=== PATIENT | male | born 1995 | race African-American/Black ===

== ENCOUNTER 2021-10-14 10:39 | Emergency (ER) | payer MEDICAID, OTHER ==
[~2021-10-14] VITALS: Ht 190.5 cm; Wt 113.4 kg
[2021-10-14 10:55] VITALS: BP 143/78
[2021-10-14] MEDS ORDERED: KETOROLAC TROMETH 60MG/2ML VIAL IM ONE (12:00)
[2021-10-14] MEDS ORDERED: IBUP800T27 PO (12:34)
[2021-10-14] MEDS ORDERED: METH750T22 PO (12:34)
== END 2021-10-14 12:40 | disposition home or self-care (01) ==
LOC: EDBD 10:39 → ER 10:39
DX: S39.012A Strain of muscle, fascia and tendon of lower back, initial encounter (principal); R51.9 Headache, unspecified; Z79.1 Long term (current) use of non-steroidal anti-inflammatories (NSAID); Z79.899 Other long term (current) drug therapy; V49.9XXA Car occupant (driver) (passenger) injured in unspecified traffic accident, initial encounter; Y93.89 Activity, other specified; Y92.410 Unspecified street and highway as the place of occurrence of the external cause; Y99.8 Other external cause status
CPT/HCPCS: 70450; 71046; 72100; 96372; 99284; J1885